=== PATIENT | female | born 1945 | race Caucasian/White ===

== ENCOUNTER 2021-06-15 13:34 | Emergency (ER) | payer MEDICARE, SELFPAY ==
[2021-06-15 13:46] VITALS: BP 130/68; PULSE 58; RESP 16; TEMP 36.3; O2SAT 98
[2021-06-15 13:58] VITALS: BP 130/68; PULSE 58; RESP 16; TEMP 36.3; O2SAT 98
--- NOTE | 2021-06-15 14:24 | ED.FEMALEGU ---
HPI - Female Genitourinary General Chief complaint: Urogenital-Female Stated complaint: Possible UTI Source: patient Mode of arrival: ambulatory Limitations: no limitations History of Present Illness HPI Narrative: Patient is a 76-year-old female who presents complaining of frequency, burning and urgency x2 to 3 days. Patient reports a history of UTIs in the past. She has multiple medical comorbidities. She denies taking [id number] medications for pain or comfort. She denies fever and all other complaints at this time. MD elicited complaint: UTI Related Data Home Medications Medication Instructions Recorded Confirmed amlodipine 10 mg PO DAILY 06/15/21 06/15/21 aspirin [Adult Low Dose Aspirin] 81 mg PO DAILY 06/15/21 06/15/21 atorvastatin 40 mg PO DAILY 06/15/21 06/15/21 clopidogrel [Plavix] 75 mg PO DAILY 06/15/21 06/15/21 furosemide 20 mg PO EVERY OTHER DAY 06/15/21 06/15/21 lisinopril 20 mg PO DAILY 06/15/21 06/15/21 metoprolol tartrate 50 mg PO DAILY 06/15/21 06/15/21 spironolactone 25 mg PO DAILY 06/15/21 06/15/21 Allergies Allergy/AdvReac Type Severity Reaction Status Date / Time prednisone Allergy Other Verified 06/15/21 13:55 Review of Systems Review of Systems: CONSTITUTIONAL: Denies fever, chills, or sweats. EYES: Denies visual changes, redness, or discharge. ENT: Denies rhinorrhea, congestion, sore throat, or otalgia. CARDIOVASCULAR: Denies chest pain, palpitations, or edema. RESPIRATORY: Denies cough or dyspnea. GASTROINTESTINAL: Denies abdominal pain, nausea, vomiting, or diarrhea. GENITOURINARY: Reports dysuria, frequency and urgency SKIN: Denies rash or itching. MUSCULOSKELETAL: Denies back pain, joint pain, or myalgia. NEUROLOGIC: Denies headache, numbness, dizziness, or weakness. PSYCHIATRIC: Denies anxiety or depression. [facility] Past Medical History Medical History Breast cancer Bilateral HTN (hypertension) Hypercholesterolemia UTI (urinary tract infection) Surgical History Surgical History H/O cardiac catheterization H/O hand surgery H/O repair of rotator cuff H/O tubal ligation History of mastectomy Hx of cholecystectomy Family History Family History Other Hypertension Social History Social History Smoking status: Former smoker Tobacco type: cigarettes Alcohol intake: never Substance use: never Comments At the time of signature, I have reviewed and agree with nursing past medical, surgical, social, and family history unless otherwise noted. Please see nursing chart for further information. There is no relevant family history pertinent to the presenting complaint. Exam Narrative: GENERAL: Well-appearing, well-nourished, and in no acute distress. HEAD: Normocephalic, atraumatic. EYES: EOMI. No redness or drainage. Conjunctiva are normal. ENT: Mucous membranes pink and moist. CHEST: No respiratory distress. HEART: Regular rate and rhythm. EXTREMITIES: Normal range of motion. No edema. SKIN: Warm, dry, no rash. NEURO: No focal deficits. Alert and oriented x3. Gait steady. PSYCH: Normal affect. No signs of depression or anxiety. Course Vital Signs Vital signs: Vital Signs Temperature 36.3 C L 06/15/21 13:46 Pulse Rate 58 L 06/15/21 13:46 Respiratory Rate 16 06/15/21 13:46 Blood Pressure 130/68 06/15/21 13:46 Pulse Oximetry 98 06/15/21 13:46 Temperature 36.3 C L 06/15/21 13:58 Pulse Rate 58 L 06/15/21 13:58 Respiratory Rate 16 06/15/21 13:58 Blood Pressure 130/68 06/15/21 13:58 Pulse Oximetry 98 06/15/21 13:58 Reviewed-patient is informed that they may have pre-hypertension or hypertension based on a blood pressure reading. I recommend the patient call the primary care provider listed on their d
== END 2021-06-15 14:36 | disposition home or self-care (01) ==
PROVIDERS: Emergency Provider Nurse Practitioner; PCP Internal Medicine
DX: N30.00 Acute cystitis without hematuria (principal); Z87.891 Personal history of nicotine dependence; I10 Essential (primary) hypertension; E78.00 Pure hypercholesterolemia, unspecified; Z85.3 Personal history of malignant neoplasm of breast; Z90.13 Acquired absence of bilateral breasts and nipples
CPT/HCPCS: 81003; 87077; 87086; 87186; 99213; G0463